=== PATIENT | male | born 1990 | race Two or more races ===

== ENCOUNTER 2018-07-26 16:21 | Emergency (ER) | payer SELFPAY ==
[2018-07-26 16:26] VITALS: BP 159/84
--- NOTE | 2018-07-26 16:42 | EDPHY ---
General - History Smoking Status: Current every day smoker Time Seen by Provider: 07/26/18 16:30 Narrative: CHIEF COMPLAINT: Possible sexually transmitted infection HISTORY OF PRESENT ILLNESS: Patient presents with complaints of possible sexually transmitted infection. He reports drainage from the urethra for past 1 week. He was reportedly seen at urgent care earlier this week where they performed sexually transmitted infection testing. He has documentation that he is negative for gonorrhea, chlamydia, Trichomonas, HIV, hepatitis. He was treated empirically with Rocephin and Zithromax. He says that he felt better for several days, but not of medications down is feeling worse. He has no pain. No flank pain. No hematuria. He has occasional drainage. He reports single sexual partner. No testicular pain at any time. No abdominal pain or fever. No other associated complaints or modifying factors REVIEW OF SYSTEMS: 10 systems were reviewed and negative with the exception of the elements mentioned in the history of present illness. PCP: Urgent care SPECIALISTS: None PAST MEDICAL HISTORY: Denies PAST SURGICAL HISTORY: None SOCIAL HISTORY: Nonsmoker. Originally from [place]. [employer] student FAMILY HISTORY: Noncontributory EXAMINATION: General Appearance: Alert, no distress Head: normocephalic, atraumatic Eyes: Pupils equal and round, no conjunctival pallor or injection Gastrointestinal: Abdomen is nondistended. : Deferred by patient DIFFERENTIAL DIAGNOSES: Including but not limited to urethritis, cystitis, UTI, sexually transmitted infection MDM: 4:30 p.m. Patient concern for possible sexually transmitted infection as he does have mild urethral discharge. He has no abdominal pain. He no dysuria. He is requesting that we repeat gonorrhea and chlamydia testing. I have ordered these and urinalysis for him. He does not want to take any medication antibiotics today. He would like to wait for the results of these test. I informed him that it will be tomorrow before we have these results. He is comfortable with waiting. He has declined exam at this time. He would like to be discharged home with follow up on the labs are available. Discharged home stable condition. SUPERVISION: This patient was independently evaluated without direct involvement of or examination by the attending physician. CONSULTATION: None (Gurjit Mustafa) Discussion: The patient was evaluated and managed by the Physician Web Marketing Strategist. My co- signature indicates that I have reviewed this chart and I agree with the findings and plan of care as documented. I am the secondary supervising physician. (Lesley Tello) - Objective Vital Signs: Initial Vital Signs Temperature (C) 36.8 C 07/26/18 16:24 Heart Rate 66 07/26/18 16:24 Respiratory Rate 16 07/26/18 16:24 Blood Pressure 159/84 H 07/26/18 16:24 O2 Sat (%) 96 07/26/18 16:24 O2 Delivery Mode Room Air Allergies/Adverse Reactions: No Known Allergies Allergy (Unverified 07/26/18 16:24) Home Medications: Medication Instructions Recorded NK [No Known Home Meds] 07/26/18 Departure - Departure Disposition: Home, Routine, Self-Care Clinical Impression: Urethral discharge in male Condition: Good Instructions: Sexually Transmitted Diseases (ED) Additional Instructions: 1. Return to emergency department if you have any flank pain, dysuria or difficulty urinating 2. We will contact you with results of the urinalysis and urine testing 3. I provided the on-call urologist free to follow up with for ongoing complaints Referrals: Mohinder Julien MD [Medical Doctor] - As per Instructions Physician,Emergency DeptMD [Medical Doctor] - As per Instructions
[2018-07-29 11:51] LABS: GC AMPLIFICATION GENPROBE NEGATIVE (NEGATIVE)
== END 2018-07-26 17:05 | disposition home or self-care (01) ==
DX: N36.9 Urethral disorder, unspecified (principal); Z11.3 Encounter for screening for infections with a predominantly sexual mode of transmission